=== PATIENT | male | born 1965 | race Caucasian/White ===

== ENCOUNTER 2016-07-09 10:56 | Observation (INO) | payer MEDICARE, MEDICAID ==
--- NOTE | 2016-07-09 11:11 | Emergency Department Record ---
History of Present Illness - General Chief Complaint: Dizziness Time Seen by Provider: 07/09/16 11:11 Source: Patient Mode of Arrival: Ambulatory Limitations: No limitations - History of Present Illness Initial Comments: The patient is here due to not feeling well for a day. It started yesterday with intermittent dizziness which he describes as lightheaded at times and off balance with walking at times. He does state he feels a spinning sensation when he closes his eyes. He denies any IGLESIAS, visual changes, fever, chills, CP, SOB, AP or vomiting. The patient also states he has a remote hx of seizures and used to have a similar feeling like this prior to the seizures. He does have a cardiac hx but denies any symptoms that he would attribute to his heart. MD Complaint: Dizziness, Lightheadedness Onset/Timin -: Days(s) Timing: Unsure Description: Difficulty walking, Off-balance History of Same: Yes History of Trauma: No Improves With: Nothing Worsens With: Movement Associated Symptoms: Malaise, Weakness - [place] Coma Scale Eye Response: (4) Open spontaneously Motor Response: (6) Obeys commands Verbal Response: (5) Oriented [place] Total: 15 - Related Data Home Medications Medication Instructions Recorded Confirmed Last Taken No Home Med [NO HOME MEDS] 07/09/16 07/09/16 Unknown Allergies Allergy/AdvReac Type Severity Reaction Status Date / Time Penicillins Allergy HIVES Verified 07/09/16 11:07 Travel Screening - Travel/Exposure Within Last 30 Days Have you traveled within the last 30 days?: No Review of Systems Constitutional: Denies: Chills, Fever Eyes: Denies: Eye discharge ENT: Denies: Congestion Respiratory: Denies: Cough, Dyspnea Past Medical History - SOCIAL HISTORY Smoking Status: Former smoker Alcohol Use: None Drug Use Detail:: Marijuana - RESPIRATORY Hx Respiratory Disorders: No - CARDIOVASCULAR Hx Cardio Disorders: Yes Hx Abnormal EKG: Yes Hx Cardiac Cath: Yes Hx Heart Attack: Yes Comment:: bradycardia - NEURO Hx Neuro Disorders: Yes Hx Seizures: Yes - GI Hx GI Disorders: No - Hx Genitourinary Disorders: No - ENDOCRINE Hx Endocrine Disorders: No - MUSCULOSKELETAL Hx Musculoskeletal Disorders: No - PSYCH Hx Psych Problems: Yes Hx Depression: Yes (bipolar/schizophrenic) - HEMATOLOGY/ONCOLOGY Hx Hematology/Oncology Disorders: No Family Medical History Any Significant Family History?: No Physical Exam - General General Appearance: Alert, Oriented x3, Cooperative, No acute distress - Head Head exam: Atraumatic, Normocephalic, Normal inspection - Eye Eye exam: Normal appearance, PERRL, EOMI, Nystagmus (Mildly with eye ROM to the L.) - ENT ENT exam: Normal exam, Mucous membranes moist, Normal external ear exam, Normal orophraynx, TM's normal bilaterally Throat exam: Normal inspection. negative: Tonsillar erythema, Tonsillar exudate - Neck Neck exam: Normal inspection, Full ROM. negative: Tenderness - Respiratory Respiratory exam: Normal lung sounds bilaterally. negative: Respiratory distress - Cardiovascular Cardiovascular Exam: Regular rate, Normal rhythm, Normal heart sounds - Extremities Extremities exam: Normal inspection, Full ROM, Normal capillary refill. negative: Tenderness - Neurological Neurological exam: Alert, Normal gait, Oriented X3, Other (Neg Drift and Rhomberg.). negative: Abnormal gait, Motor sensory deficit - Psychiatric Psychiatric exam: negative: Agitated, Anxious, Depressed Course Vital Signs 07/09/16 11:08 Temperature 97.2 F L Pulse Rate [ 68 Client Experience Consultant ] Respiratory 18 Rate Blood Pressure 166/100 [Left Arm] Pulse Ox 100 - Reevaluation(s) Reevaluation #1: The patient is feeling a little better but not back to normal. He denies any CP or SOB or IGLESIAS but states he is mildly dizzy at times. He is able to get up and walk with minimal difficulty even though he had a neg Drift and Rhomberg exams. I did discuss admitting him to the hospital as an OBS and he agrees to the plan. I also did discuss the case with Gema GARRIDO) and she agrees to the admission. 07/09/16 13:18 Medical Decision Making - Data Complexity MDM Data: Labs Ordered and/or Reviewed, X-Ray Ordered and/or Reviewed, EKG Ordered and/or Reviewed - Lab Data Result diagrams: 07/09/16 11:30 07/09/16 11:30 - EKG Data -: EKG Interpreted by Me EKG: No Acute Changes, Unchanged From Previous - Radiology Data Radiology results: Report reviewed (Head CT: Neg) Disposition Disposition: Admit Clinical Impression: Ataxia Disposition: Still a Patient at [facility] Decision to Admit: Admit from ER Decision to Admit Date: 07/09/16 Decision to Admit Time: 13:20 Accepting Physician: Snow Time Discussed w/Accepting Physician: 13:20 Condition: (2) Stable Forms: Patient Portal Access Time of Disposition: 13:20
[2016-07-09] MEDS ORDERED: 0.9 % SODIUM CHLORIDE 1,000 ML BAG IV ONE (11:17)
[2016-07-09] MEDS ORDERED: MECLIZINE 25 MG TABLET PO ONE (11:18)
[2016-07-09 11:38] LABS: BASO % 0.5 % (0-6); HEMATOCRIT 46.4 % (42.0-52.0); HEMOGLOBIN 15.9 gm/dl (14.0-18.0); MEAN CELL VOLUME 93.2 fl (81-97); MEAN CORPUSCULAR HEMOGLOBIN 31.9 pg (27-33); MEAN CORPUSCULAR HGB CONC 34.3 g/dl (32-36); MEAN PLATELET VOLUME 10.3 fl (7.4-10.4); MONO % 7.5 % (0-9); PLATELET COUNT 278 K/uL (130-400); RED BLOOD COUNT 4.98 M/uL (4.40-5.70); RED CELL DISTRIBUTION WIDTH 12.9 % (11.5-14.5); WHITE BLOOD COUNT W/O DIFF 8.6 K/uL (4.2-12.2)
[2016-07-09 11:50] LABS: ANION GAP 15.6 (7-16); BLOOD UREA NITROGEN 11 mg/dL (9-20); CARBON DIOXIDE 24.4 mmol/L (22-30); CREATINE PHOSPHOKINASE 137 U/L (55-170); CREATININE 0.7 mg/dL (0.66-1.25); EST GLOMERULAR FILTRATION RATE > 60 ml/min; GLUCOSE,RANDOM 99 mg/dL (70-110)
[2016-07-09 12:02] LABS: CKMB 3.8 ug/L (0-6); TROPONIN I < 0.012 ng/mL (0.00-0.034)
[2016-07-09] MEDS ORDERED: ASPIRIN 325 MG TABLET PO ONE (13:16)
[2016-07-09 17:59] LABS: CKMB 2.8 ug/L (0-6)
[2016-07-09 18:00] LABS: TROPONIN I < 0.012 ng/mL (0.00-0.034)
[2016-07-09] MEDS: 0.9 % SODIUM CHLORIDE 10ML SYR IVP SCH (18:00)
[2016-07-09] MEDS: MECLIZINE 25 MG TABLET PO PRN (23:09)
[2016-07-10 01:14] LABS: CKMB 2.4 ug/L (0-6)
[2016-07-10 01:15] LABS: TROPONIN I < 0.012 ng/mL (0.00-0.034)
[2016-07-10] MEDS: 0.9 % SODIUM CHLORIDE 10ML SYR IVP SCH (04:20)
--- NOTE | 2016-07-10 07:16 | CT SCAN REPORT ---
EXAM: CT SCAN OF THE HEAD WITHOUT CONTRAST HISTORY: PATIENT IS DIZZY, WEAK, HAS HEADACHE AND IS OFF BALANCE. TECHNIQUE: Serial axial CT scan of the head was performed at 2.5 mm intervals from the base of the skull to the apex without the use of intravenous contrast. Sagittal and coronal reconstructions are provided. No comparison studies are available. FINDINGS: The ventricles, cisterns and sulci appear within normal limits for size, shape, and attenuation. There is no mass or mass effect. The cordoba and white differentiation appear within normal limits. There is no CT evidence of intra or extraaxial fluid collection to suggest bleeding. The bone windows demonstrate no CT evidence of a fracture or dislocation of the skull. Mild mucosal thickening is noted within the paranasal sinuses. IMPRESSION: NO CT EVIDENCE OF AN ACUTE INTRACRANIAL PROCESS. JOB NUMBER: [id number] [facility]
[2016-07-10 08:08] LABS: BLOOD UREA NITROGEN 11 mg/dL (9-20); CREATININE 0.8 mg/dL (0.66-1.25); EST GLOMERULAR FILTRATION RATE > 60 ml/min; GLUCOSE,RANDOM 95 mg/dL (70-110)
[2016-07-10] MEDS ORDERED: ASPIRIN 325 MG TAB ENTERIC-COATED PO SCH (10:00)
[2016-07-10] MEDS: MECLIZINE 25 MG TABLET PO PRN (11:38)
[2016-07-10] MEDS ORDERED: ACETAMINOPHEN 500 MG TABLET PO PRN (12:01)
--- NOTE | 2016-07-10 15:08 | US CAROTID DOPPLER REPORT ---
EXAM: DUPLEX DOPPLER ULTRASOUND OF THE CAROTID ARTERIES HISTORY: DIZZINESS AND LIGHTHEADEDNESS FOR TWO DAYS. TECHNIQUE: Duplex Doppler ultrasound of the carotid arteries was obtained. COMPARISON: None. FINDINGS: On the right side, mild atherosclerotic change in plaque is seen at the right carotid bifurcation. The right internal carotid, external carotid, and common carotid arteries otherwise are unremarkable. The peak systolic flow velocity in the right common carotid artery is 78 cm/s. The peak systolic flow velocity in the right internal carotid artery is 77 cm/s. The peak systolic flow velocity ratio is 1 which is unremarkable. There is normal flow in the right external carotid. Flow is seen in the right vertebral which is unremarkable. On the left side, mild plaque is seen at the left carotid bifurcation. The left common carotid artery, internal carotid artery, and external carotid arteries otherwise are grossly unremarkable. The peak systolic flow velocity in the left common carotid artery is 93 cm/s and in the left internal carotid carotid is 77 cm/s. The peak systolic flow velocity ratio is 0.8 which is unremarkable. Normal appearing flow in the left external carotid artery. There is flow seen in the left vertebral artery which is unremarkable. IMPRESSION: MILD ATHEROSCLEROTIC PLAQUE SEEN AT THE CAROTID ARTERIES BILATERALLY. NO EVIDENCE FOR SIGNIFICANT STENOSIS SEEN. PLEASE SEE ABOVE FOR FULL DISCUSSION. JOB NUMBER: [id number] [facility]
--- NOTE | 2016-07-10 16:30 | History & Physical ---
History of Present Illness - Date of Service Date of Service for History & Physical: 07/10/16 - History of Present Illness Admitting Diagnosis: 1. Acute ataxia, R/O CVA. History of Present Illness: 51yo male with CC of dizziness. He has a history of CT 12 years ago with stent placement, bipolar disorder, schizophrenia, marijuana use and remote history of seizures. he does not follow with a neurologist and has not seen his rocket engine component mechanic in a while. Patient presented to the ED due to not feeling well for a day. It started yesterday with intermittent dizziness which he describes as lightheaded at times and off balance with walking at times. He does state he feels a spinning sensation when he moves his head quickly. He denied any IGLESIAS, visual changes, fever, chills, CP, SOB, AP or vomiting. The patient also stated he had a remote hx of seizures and used to have a similar feeling like this prior to the seizures. He does have a cardiac hx but denied any symptoms that he would attribute to his heart like chest pain. While in the ED, patient had head CT that was negative for acute process. EKG showed diffuse j point elevation but this was found not to be an acute change when compared to previous EKG's. 1st of CE returned WNL and patient continued to deny any chest pain. CBC and CMP were unremarkable. Neuro exam was negative for focal deficits and cerebellar tests were negative as well. Patient's dizziness was improved somewhat with antivert. He was admitted for serial enzymes and further work-up of his dizziness. 07/10/16- Patient continues to have some dizziness with movement of his head or walking. He says he feels fine while resting in bed. He says the antivert does seem to decrease the severity of the dizziness. He continues to deny any chest pain, shortness of breath, visual changes, weakness, numbness/tingling, nausea or headache. Denies any recent head trauma, medication changes, drug use aside from marijuana, or recent URI symptoms. PCP: Viraj Cardiology: Myles Travel Screening - Travel/Exposure Within Last 30 Days Have you traveled within the last 30 days?: No - Travel/Exposure Within Last Year Have you traveled outside the [place] in the last year?: No - Additonal Travel Details Have you been exposed to anyone with a communicable illness?: No - Travel Symptoms Symptom Screening: None Review of Systems Constitutional: Denies: Chills, Fever Eyes: Denies: Eye discharge ENT: Denies: Congestion Respiratory: Denies: Cough, Dyspnea Cardiovascular: Denies: Chest pain, Dyspnea on exertion, Edema, Palpitations, Syncope Gastrointestinal: Denies: Abdominal pain, Nausea, Vomiting Neurological: Reports: Vertigo. Denies: Abnormal gait, Confusion, Headache, Numbness, Paresthesias, Seizure, Tingling, Weakness Psychiatric: Denies: Anxiety, Depression Past Medical History - SOCIAL HISTORY Smoking Status: Former smoker Alcohol Use: Rare Drug Use Detail:: Marijuana - RESPIRATORY Hx Respiratory Disorders: No - CARDIOVASCULAR Hx Cardio Disorders: Yes Hx Abnormal EKG: Yes Hx Cardiac Cath: Yes Hx Heart Attack: Yes Comment:: bradycardia,stent - NEURO Hx Neuro Disorders: Yes Hx Seizures: Yes - GI Hx GI Disorders: Yes Hx of Polyps: Yes Comment:: IBS - Hx Genitourinary Disorders: No - ENDOCRINE Hx Endocrine Disorders: No - MUSCULOSKELETAL Hx Musculoskeletal Disorders: Yes Hx Arthritis: Yes Comment:: HERNIATED,PROTRUDING DISCS - PSYCH Hx Psych Problems: Yes Hx Depression: Yes (bipolar/schizophrenic) - HEMATOLOGY/ONCOLOGY Hx Hematology/Oncology Disorders: No Family Medical History Any Significant Family History?: No Hx Heart Disease: Father, Grandparents H&P Meds/Allergies - Allergies Allergies: Allergies Allergy/AdvReac Type Severity Reaction Status Date / Time Penicillins Allergy HIVES Verified 07/09/16 11:07 - Home Medications Previous Rx's Medication Instructions Recorded Meclizine HCl [Antivert] 25 mg PO Q8H #30 tablet 07/10/16 - Active Medications Active Medications: Current Medications Acetaminophen (Tylenol 500mg Tab) 1,000 mg PO Q8H PRN PRN Reason: Pain - Mild (1-4) Last Admin: 07/10/16 12:06 Dose: 1,000 mg Aspirin (Ecotrin (Ec)) 325 mg PO DAILY JONES Last Admin: 07/10/16 11:38 Dose: 325 mg Meclizine HCl (Antivert) 25 mg PO Q8H PRN PRN Reason: Dizziness Last Admin: 07/10/16 11:38 Dose: 25 mg Sodium Chloride () 10 ml IVP Q12H JONES Last Admin: 07/10/16 04:20 Dose: 10 ml Physical Exam - Vital Signs Vital Signs: Vital Signs - Last 24 Hrs Temp Pulse Pulse Resp BP BP Pulse Ox 07/10/16 09:00 64 18 07/10/16 08:00 98.4 F 67 18 138/67 97 07/10/16 04:20 98.2 F 55 L 18 147/72 98 07/09/16 21:30 98.0 F 64 18 128/86 98 07/09/16 21:00 57 L 18 - General General Appearance: Alert, Oriented x3, Cooperative, No acute distress Limitations: No limitations - Head Head exam: Atraumatic, Normocephalic, Normal inspection Head exam detail: negative: Abrasion, Contusion - Eye Eye exam: Normal appearance, PERRL, EOMI Pupils: Normal accommodation - ENT ENT exam: Normal exam, Mucous membranes moist, Normal external ear exam, Normal orophraynx, TM's normal bilaterally Ear exam: Normal external inspection. negative: External canal tenderness Nasal Exam: Normal inspection. negative: Discharge, Sinus tenderness Mouth exam: Normal external inspection, Tongue normal Throat exam: Normal inspection. negative: Tonsillar erythema, Tonsillar exudate - Neck Neck exam: Normal inspection, Full ROM. negative: Lymphadenopathy, Tenderness - Respiratory Respiratory exam: Normal lung sounds bilaterally. negative: Respiratory distress - Cardiovascular Cardiovascular Exam: Regular rate, Normal rhythm, Normal heart sounds - GI/Abdominal GI/Abdominal exam: Soft, Normal bowel sounds. negative: Tenderness - Rectal Rectal exam: Deferred - exam: Deferred - Extremities Extremities exam: Normal inspection, Full ROM, Normal capillary refill. negative: Pedal edema, Tenderness - Back Back exam: Reports: Normal inspection, Full ROM. Denies: Muscle spasm, Rash noted, Tenderness - Neurological Neurological exam: Alert, CN II-XII intact, Normal gait, Oriented X3, Reflexes normal, Other (Neg Drift and Rhomberg.). negative: Abnormal gait, Motor sensory deficit - Psychiatric Psychiatric exam: negative: Agitated, Anxious, Depressed - Skin Skin exam: Dry, Intact, Normal color, Warm Results - Labs Result Diagrams: 07/09/16 11:30 07/10/16 07:30 Labs Last 24 Hours: Laboratory Results - last 24 hr 07/09/16 07/10/16 07/10/16 17:20 00:00 07:30 Sodium 141 Potassium 4.6 Chloride 103 Carbon Dioxide 27.0 Anion Gap 11.0 BUN 11 Creatinine 0.8 Estimated GFR > 60 Random Glucose 95 Calcium 9.0 CK-MB (CK-2) 2.8 2.4 Troponin I < 0.012 < 0.012 - Imaging and Cardiology CT scan - head Status: Report reviewed (no acute process) VTE H&P Assessment - Risk for VTE Risk for VTE: Yes Risk Level: Low Risk Assessment Date: 07/10/16 Risk Assessment Time: 17:00 VTE Orders Placed or Will Be Placed: No VTE Reason for No Prophylaxis: Not Indicated Plan - Detailed Diagnosis and Plan (1) Dizziness Status: Acute Base Code: R42 - DIZZINESS AND GIDDINESS Comment: 07/10/16- Improved. Still has some dizziness with rapid head movement. Severity improved with antivert use. CT head was negative for acute process. Full neuro exam without deficits. EKG unchanged from previous. All 3 sets of CE wnl range and patient is not having any chest pain, sob, palpitations. Patient has not seen his rocket engine component mechanic, Dr. Bueno, in a while. Do not feel his acute onset of dizziness is cardiac in origin but will compelte work-up with echo and b/l carotid dopplers. -echo and carotid doppler ordered -continue antivert 25mg pO q8H prn dizziness -continue telemetry -monitor vitals q8H (2) Full code status Status: Acute Base Code: Z78.9 - OTHER SPECIFIED HEALTH STATUS Comment: 07/10/16- patient is full code status (3) DVT prophylaxis Status: Acute Base Code: [id number] - Comment: 07/10/16- Patient is low risk as ambulation is not restricted -will continue to encourage frequent ambulation
--- NOTE | 2016-07-10 16:30 | Discharge Summary ---
Providers Discharge Summary Date: 07/10/16 Date of admission: 07/09/16 14:20 Expected Date of Discharge: 07/10/16 Attending physician: THOMAS BENITEZ Primary care physician: MING MARSH D.O. Physical Exam - Vital Signs Vital Signs: Vital Signs - Last 24 Hrs Temp Pulse Pulse Resp BP BP Pulse Ox 07/10/16 09:00 64 18 07/10/16 08:00 98.4 F 67 18 138/67 97 07/10/16 04:20 98.2 F 55 L 18 147/72 98 07/09/16 21:30 98.0 F 64 18 128/86 98 07/09/16 21:00 57 L 18 - General General Appearance: Alert, Oriented x3, Cooperative, No acute distress Limitations: No limitations - Head Head exam: Atraumatic, Normocephalic, Normal inspection - Eye Eye exam: Normal appearance, PERRL, EOMI, Nystagmus (Mildly with eye ROM to the L.) - ENT ENT exam: Normal exam, Mucous membranes moist, Normal external ear exam, Normal orophraynx, TM's normal bilaterally Throat exam: Normal inspection. negative: Tonsillar erythema, Tonsillar exudate - Neck Neck exam: Normal inspection, Full ROM. negative: Tenderness - Respiratory Respiratory exam: Normal lung sounds bilaterally. negative: Respiratory distress - Cardiovascular Cardiovascular Exam: Regular rate, Normal rhythm, Normal heart sounds - Extremities Extremities exam: Normal inspection, Full ROM, Normal capillary refill. negative: Tenderness - Neurological Neurological exam: Alert, Normal gait, Oriented X3, Other (Neg Drift and Rhomberg.). negative: Abnormal gait, Motor sensory deficit - Psychiatric Psychiatric exam: negative: Agitated, Anxious, Depressed Hospitalization - Hospitalization Admission Diagnosis: 1. Acute ataxia, R/O CVA. - Problem List/Discharge Diagnosis (1) Dizziness Status: Acute Base Code: R42 - DIZZINESS AND GIDDINESS Comment: 07/10/16- Improved. Still has some dizziness with rapid head movement. Severity improved with antivert use. CT head was negative for acute process. Full neuro exam without deficits. EKG unchanged from previous. All 3 sets of CE wnl range and patient is not having any chest pain, sob, palpitations. Preliminary echo report shows EF of 65% with mild Tricuspid and mitral valve regurgitation. Carotid dopplers showed mild atherosclerotic changes but no evidence of stenosis. Do not feel dizziness is cardiac or VOCATIONAL TRAINING TEACHER in origin with completely normal neuro, CT head, cardiac work-up. MLC is BPPV with dizziness affected by head movement and sudden onset. -will have him call on Wednesday to schedule follow up with PCP and cardiology to which he agrees -continue antivert 25mg pO q8H prn dizziness. script sent to pharmacy -explained he should return to ED if any of his symptoms change or worsen or if he develops new symptoms. Patient voiced his understanding. (2) DVT prophylaxis Status: Acute Base Code: [id number] - Comment: 07/10/16- Patient is low risk as ambulation is not restricted -will continue to encourage frequent ambulation (3) Full code status Status: Acute Base Code: Z78.9 - OTHER SPECIFIED HEALTH STATUS Comment: 07/10/16- patient is full code status - Hospitalization Course Disposition: Home, Self-Care Hospital Course: 51yo male with CC of dizziness. He has a history of [place] 12 years ago with stent placement, bipolar disorder, schizophrenia, marijuana use and remote history of seizures. he does not follow with a neurologist and has not seen his motor patrol operator in a while. Patient presented to the ED due to not feeling well for a day. It started yesterday with intermittent dizziness which he describes as lightheaded at times and off balance with walking at times. He does state he feels a spinning sensation when he moves his head quickly. He denied any IGLESIAS, visual changes, fever, chills, CP, SOB, AP or vomiting. The patient also stated he had a remote hx of seizures and used to have a similar feeling like this prior to the seizures. He does have a cardiac hx but denied any symptoms that he would attribute to his heart like chest pain. While in the ED, patient had head CT that was negative for acute process. EKG showed diffuse j point elevation but this was found not to be an acute change when compared to previous EKG's. returned WNL and patient continued to deny any chest pain. CBC and CMP were unremarkable. Neuro exam was negative for focal deficits and cerebellar tests were negative as well. Patient's dizziness was improved somewhat with antivert. He was admitted for serial enzymes and further work-up of his dizziness. 07/10/16- Patient continues to have some dizziness with movement of his head or walking. He says he feels fine while resting in bed. He says the antivert does seem to decrease the severity of the dizziness. He continues to deny any chest pain, shortness of breath, visual changes, weakness, numbness/tingling, nausea or headache. Denies any recent head trauma, medication changes, drug use aside from marijuana, or recent URI symptoms. PCP: Viraj Cardiology: Myles Procedures: Imaging and X-Rays 07/10/16 09:00 ARTERIAL DOPPLER CAROTID LETTY [US] Stat Cardiology Procedures 07/10/16 05:18 Echocardiogram 2D - Limited NOW 07/10/16 08:56 Echo W/CF & Cardiac Doppler NOW Condition at Discharge: (2) Stable Discharge Medications - Discharge Medications Prescriptions: Meclizine HCl [Antivert] 25 mg PO Q8H #30 tablet Home Medications: Ambulatory Orders Meclizine HCl [Antivert] 25 mg PO Q8H #30 tablet 07/10/16 [Last Taken Unknown] Discharge Plan - Discharge Instructions Activity at Discharge: Resume Usual Activities As Tolerated Diet at Discharge: Low Fat, Low Cholesterol, Low Salt Diet Instructions: Meclizine (By mouth), Heart Healthy Diet (DC), Vertigo (DC), Low Sodium Diet (DC), Dizziness (GEN) Additional Instructions: 2 Activity: As tolerated 2 Diet: Cardiac 2 Consults: [] 2 Follow Up: [Call to schedule an appointment with Dr. Marsh on Wednesday for in 1 to 2 weeks Schedule appointment with Dr. Bueno on Wednesday to be seen in 1-2 weeks for follow up from echo] 2 Dressing/Wound Care: (Type) (Change) 2 Additional: [Continue home medications New medications Antivert 25mg every 8 hours as needed for dizziness. Return to the emergency room if any new or worsening symptoms occur, especially any vision changes, chest pain, headache, or acute weakness.]
== END 2016-07-10 17:37 | disposition home or self-care (01) ==
LOC: ER 10:56 → MEDSURG 14:20
PROVIDERS: ADMIT Family Medicine; ATTEND Family Medicine
DX: R42 Dizziness and giddiness (principal); R27.8 Other lack of coordination; F31.9 Bipolar disorder, unspecified; F20.9 Schizophrenia, unspecified
CPT/HCPCS: 99285 ×2; 96360; 96361; 82550; 85025; 82553 ×2; 84484 ×2; 80048 ×2; 93880; 70450; 93005 ×2; 93010 ×2; G0378 ×2; 99220; J7030